=== PATIENT | male | born 1975 | race Caucasian/White ===

== ENCOUNTER 2024-04-19 11:42 | Emergency (ER) | payer OTHER ==
[~2024-04-19] VITALS: Ht 172.7 cm; Wt 70.0 kg
[2024-04-19 11:44] VITALS: O2SAT 94
[2024-04-19] MEDS: HYDROCODONE/ACETAMINOPHEN 5/325MG TABLET PO STA (12:39)
[2024-04-19] MEDS ORDERED: IBUP-2029 MT (12:58)
[2024-04-19 13:38] VITALS: BP 133/80; PULSE 78; RESP 18; TEMP 36.11400; O2SAT 94
== END 2024-04-19 13:38 | disposition home or self-care (01) ==
LOC: ER 11:55
DX: R07.89 Other chest pain (principal)
CPT/HCPCS: 71101; 99291